=== PATIENT | female | born 1960 | race Caucasian/White ===

== ENCOUNTER 2021-09-15 22:43 | Inpatient (IN) | payer BC, SELFPAY ==
[2021-09-15 23:40] VITALS: BP 104/62; PULSE 99; RESP 18; TEMP 36.6; O2SAT 97
--- NOTE | 2021-09-16 00:47 | PC.ADMIT ---
Patient admitted to [facility] from [facility] medical unit, after receiving medical clearance from ingesting Prescription Effexor 10-11 pills with alcohol after a bad day caring for my mom . Signed CV, and requested and signed a 3Day Notice upon admission to the unit. Patient calm and cooperative with admission assessment; visibly nervous. Patient reports increased recent stressors of caring for her mother who is on hospice and dying, along with poor coping skills, drinking to cope with things . No s/sx of alcohol withdrawal, last drink was 09/12.Reports not feeling suicidal, does not consider OD to be a suicide attempt, I care too much about my family...I did it just to get some sleep. Reporting poor sleep, only 4-5 hours of broken sleep a night. Decreased appetite. 2nd overdose in recent months, I have never felt this way before and I wonder if it is the medicine. Patient reports having strong support system with her family, but lacks outside supports, has been trying to get an outside therapist for over 6 months; recently connected with a [employer] [employer] who is prescribing psych medications. Legals Signed. Reports feeling safe on the unit, denies SI/HI/AVH. Placed on 15 minute safety checks.
[2021-09-16 08:34] LABS: Cholesterol 266 mg/dL; HDL Cholesterol 54 mg/dL; LDL Cholesterol Calculated 183 mg/dl; Magnesium 2.3 mg/dL (1.6-2.6); Triglycerides 148 mg/dL
[2021-09-16 08:52] LABS: Estimated Average Glucose 97 mg/dL
[2021-09-16 08:56] LABS: Free T4 (Free Thyroxine) 1.09 ng/dL (0.71-1.85); Thyroid Stimulating Hormone 2.68 uIU/mL (0.32-4.0)
[2021-09-16 09:15] LABS: Folate 12.2 ng/mL (> or = 4.0); Vitamin B12 155 pg/mL (200-900)
--- NOTE | 2021-09-16 10:11 | P.CONHOSP_ITS ---
History of Present Illness Data of Consult Service Date: 09/16/21 Primary Care Provider: Unknown Physician HPI 60 year old female with HTN, HLD here with depression and ingestion meds with alcohol . She denies SI at present. No other acute medical complaint. no SO, no chest pain, no dizziness Review of Systems Review of Systems: Gen: no fever Resp: no sob, no cough CV: no chest, no MONROY, no leg edema GI: No n/v, no abd pain Neuro: No confusion PsychL no SI Yes all other systems are reviewed and are negative [facility] Social History Household Members: Spouse, Family, Children and Other Household Members Other:: Spouse, dtr& RODNEY with 3 grandchilden; Mother lives in in-law apartment Housing: House Do you presently have visiting nurse or other home services: No Patient Tobacco Use Status: Former Tobacco user Quit Date: 1981 Tobacco use type: Cigarette Smoked in Last 30 Days: No Use of substances other than those prescribed or required for medical reasons: No Have you been hit, kicked, punched, or otherwise hurt by someone within the past year? If so, by whom?: No Do you feel safe in your current relationship?: Yes Is there a partner from a previous relationship who is making you feel unsafe now?: No Are you made to feel afraid or neglected: No Advance Directives: No Do you have thoughts of harming others: None Do you have a plan to hurt others: No Plan Recently lost weight without trying: Unsure Eating poorly because of decreased appetite: Yes Nutrition Risks: No Nutritional Risk Patient : No : No Poor oral hygiene: No Meds Allergies Allergy/AdvReac Type Severity Reaction Status Date / Time No Known Allergies Allergy Verified 09/15/21 23:01 Active Medications: Current Medications Acetaminophen (Acetaminophen 325 Mg Tablet) 650 mg PO Q6H PRN PRN Reason: Headache/Pain Mild Scale (1-3) Al Hydroxide/Mg Hydroxide (Magnesium Hydrox/Alum Hydrox 30 Ml Oral.Susp) 30 ml PO Q6H PRN PRN Reason: Heartburn/Nausea Hydroxyzine HCl (Hydroxyzine Hcl 25 Mg Tablet) 25 mg PO Q6H PRN PRN Reason: Anxiety Magnesium Hydroxide (Milk Of Magnesia 30 Ml Oral.Susp) 30 ml PO DAILY PRN PRN Reason: Constipation Trazodone HCl (Trazodone Hcl 50 Mg Tablet) 50 mg PO BEDTIME PRN PRN Reason: Insomnia Home Medications Medication Instructions Recorded Confirmed Last Taken Type losartan 75 mg PO DAILY 09/16/21 09/16/21 09/15/21 20:00 History 75 mg Physical Exam Vital Signs and Narrative: Vital Signs: Last Vital Signs Temp 97.8 F 09/15/21 23:40 Pulse 99 09/15/21 23:40 Resp 18 09/15/21 23:40 BP 104/62 09/15/21 23:40 Pulse Ox 97 09/15/21 23:40 O2 Del Method 09/15/21 23:40 Const: Other: Constitutional: Alert, in no distress Mental Status: Oriented to person, place and time. Eyes: Pupils are equal, round and reactive to light. Ear, Nose and Throat: Oropharynx clear, mucous membranes moist. Respiratory: Clear to auscultation. No wheezing, rales or rhonchi. Cardiovascular: S1 S2 regular. No murmurs, rubs or gallops. Gastrointestinal: Abdomen soft, non-tender, non-distended. Normal bowel sounds.? Neurologic: Cranial nerves II-XII grossly intact. No focal neurological deficits. Moves all extremities spontaneously.? Skin: No rashes or lesions.? Musculoskeletal: No cyanosis or clubbing. Psychiatric: Normal mood and affect, denies SI/HI Results Labs Labs: Laboratory Results - last 24 hr 09/16/21 09/16/21 09/16/21 08:06 08:06 08:06 Estimat Average Glucose 97 Hemoglobin A1c % 5.0 Magnesium 2.3 Triglycerides 148 Cholesterol 266 LDL Cholesterol, Calc 183 HDL Cholesterol 54 Vitamin B12 155 L Folate 12.2 TSH 2.68 Free T4 1.09 Assessment and Plan (1) HTN (hypertension): Status: Acute Plan 60 year old female with HTN, HLD here with depression and ingestion meds with alcohol . She denies SI at present. No other acute medical complaint. no SO, no chest pain, no dizziness HTN--continue Losartn, HLD--may resume Rozuvostatin. Should ECT be indicated, get an ECG and if unremarkable. Proceed.
--- NOTE | 2021-09-16 16:27 | HO.PSYADMNOT ---
HPI Date of Service: 09/16/21 Chief Complaint: Unspecified depressice disorder Sources of Information: patient interviewed, chart reviewed and crisis/core team assessment reviewed HPI Subjective Notes: Gibson Warning, Conditional Voluntary and 3 Day Healthcare Proxy: No Guardianship: No Medical Problems Affecting Mental Status: No Narrative: 60 yo female, transfer from medical, s/p overdose of venlafaxine ER 10-11 tabs and alcohol in pt's report- not to but to get some sleep . This is pt's second Venlafaxine/Alcohol OD. She was recently in [facility] for the same issue. Pt reports I am obsessive about having my health-I did not believe I overdosed, I just took extra to sleep . I am anxious about my health-I would never think of doing this . I have a wonderful family-, children, grandchildren . I want to be with them. Pt reports current major stressor is her mom. Pt and mom have lived together their entire lives except for the first 5 years of pt's marriage. Mom is 89 and is in the process of passing. I see it every day-it is so hard- I held her like a child last week (crimodesto). Pt reports that she has 9 grandchildren and another due in a few months. She has signed a TDN and hopes to leave next week. Toxicology positive for Cannabis-reports she tried a gummy for sleep which was not effective. Past Psychiatric History: IP: [facility] recently s/p OD of Venlafaxine, Alcohol OP: [facility] for meds Pt on the wait list for therapy Has interest in PHP if available. Medical Evaluation Reviewed: Yes [facility] Narrative: HTN Serotonin Syndrome s/p OD with >QTc [id number] range and sinus tachycardia, along with motor restlessness HLD Family History: denies Social History: Born in [place], raised in [place]. 4 sisters, 1 of cystic fibrosis- three years after father ; 2 brothers Father when pt was 11. He was 44 and of cardiac arrest Pt comments this is part of the reason it is so hard to lose my mom. She is the only parent to me High school graduate. , works on a ship and is usually gone for several months. He is currently home until October. 4 kids, 1 son, 3 daughters Son just retired from the [employer], moved to [place]. Pt and just returned from visiting. They will relocate to [place] and pt plans to fly down for a few weekends to care for the grandchildren (4). Three other children with 5 grandchildren and one expected in a few months.(due Oct 2) Mom has lived with pt for pt's entire life except for 5 years when she was first Substance History: Alcohol- 3 times per week, possibly once on the weekend to cope and sleep Trauma History: losses Diagnostics Vital Signs (24Hr): Vital Signs - 24 hr 09/15/21 23:40 Temperature 97.8 F Pulse Rate 99 Respiratory Rate 18 Blood Pressure 104/62 Pulse Oximetry 97 Oxygen Delivery Method Room Air Labs Labs: Laboratory Results - last 48 hr 09/16/21 09/16/21 09/16/21 08:06 08:06 08:06 Estimat Average Glucose 97 Hemoglobin A1c % 5.0 Magnesium 2.3 Triglycerides 148 Cholesterol 266 LDL Cholesterol, Calc 183 HDL Cholesterol 54 Vitamin B12 155 L Folate 12.2 TSH 2.68 Free T4 1.09 Meds/Allergies Meds Home Medications Medication Instructions Recorded Confirmed Type losartan 75 mg PO DAILY 09/16/21 09/16/21 History Allergies Allergies Allergy/AdvReac Type Severity Reaction Status Date / Time No Known Allergies Allergy Verified 09/15/21 23:01 Mental Status Exam Mental Status Exam Patient Orientation: Person, Place, Time and Situation Level of Consciousness: Alert Patient Behavior: Talkative, Good Eye Contact and Crying Mood Description: Depressed, Anxious, Sad and Apprehensive Affect Description: Flat Patient Cognition Impaired: No Ability to Follow Directions: Good Speech Pattern: Spontaneous Speech Memory Description: Intact Hallucinations: None Delusions: Not Present Perceptual Disturbances: Derealization Thought Process: Rumination Thought Content: positive for Perseveration and positive for Suicidal Ideation (denies) Depressive Symptoms: Insomnia, Unhappiness (grief-mom is about to pass away) and Thoughts of /Suicide (denies) Abnormal Motor Activity Signs and Symptoms: Restlessness Judgement: Fair Assessment & Plan Assessment & Plan (1) Recurrent major depression: Status: Acute Code(s): F33.9 - Major depressive disorder, recurrent, unspecified (2) Alcohol abuse: Status: Acute Code(s): F10.10 - Alcohol abuse, uncomplicated (3) Anticipatory grief: Status: Acute Code(s): F43.20 - Adjustment disorder, unspecified Plan 60 yo female, s/p overdose of Venlafaxine 10-11 tabs and alcohol with resulting Serotonin Syndrome. Pt reports this was not an attempt to take her life but an attempt to get sleep and cope with the upcoming passing of her mother. This is pt's second admission for Venlafaxine/alcohol OD and she states there is something about this medicine that makes it strange for me to be clear . Pt denies SI, she has signed a three day notice of intent and is willing to do PHP,IOP, and individual therapy. She also is willing to trial another antidepressant. Plan: Trazodone for sleep. EKG on 09/19 to eval QTc and begin another agent. Will allow a break in agents to decrease Venlafaxine levels. Family meeting if possible. Patient educated on: therapeutic strategies Informed Consent: further education needed Reason for continued inpatient stay Substantial Risk for: harm to self, inability to function and rapid decompensation
[2021-09-16 21:08] VITALS: BP 164/75; PULSE 84; RESP 16; O2SAT 99
[2021-09-16] MEDS: hydrOXYzine HCL 25 MG TABLET PO (22:48)
[2021-09-16] MEDS: traZODone HCL 50 MG TABLET PO (22:48)
[2021-09-17 06:43] VITALS: BP 121/72; PULSE 85; RESP 14; TEMP 36.8; O2SAT 96
[2021-09-17] MEDS: Losartan Potassium 25 MG TABLET 75 MG PO (09:25)
[2021-09-17] MEDS: Acetaminophen 325 MG TABLET 650 MG PO ×2 (09:26→21:35)
--- NOTE | 2021-09-17 17:27 | HO.PSYCHPN ---
Subjective Subjective Date of Service: 09/17/21 Reason For Visit: Unspecified depressice disorder Interim History: Patient reports that her mood is better. She discussed the overdose and said she never wants to but just to sleep. She denies any SI at all. She is open to starting a new antidepressant. Patient talked tender early about her mother who was on hospice and will soon and how it has been difficult adjusting to this. She also talked about her problems with drinking alcohol and how she knows this played a big contribution. Her plan is to pursue sobriety. Patient also very much wants a therapist Mental Status Exam Mental Status Exam Narrative: Pt is alert and oriented; behavior is cooperative, friendly and calm; patient is not in distress; dressed in casual attire, well groomed; mood is described as better and affect congruent; eye contact appropriate; Speech is normal rate, volume and prosody and not pressured; no psychomotor agitation/retardation present; thought process is organized and goal directed; Thought content is on tx; otherwise pertinent to relevant topics and without any delusional content, paranoid ideations or grandiosity; denies any SI/HI. There is no evidence of perceptual disturbance. Patients insight and judgment appear intact. Diagnostics Vital Signs (24Hr): Vital Signs - 24 hr 09/16/21 21:08 09/17/21 06:43 Temperature 98.3 F Pulse Rate 84 85 Respiratory Rate 16 14 Blood Pressure 164/75 H 121/72 Pulse Oximetry 99 96 Oxygen Delivery Method Room Air Room Air Labs Labs: Laboratory Results - last 48 hr 09/16/21 09/16/21 09/16/21 08:06 08:06 08:06 Estimat Average Glucose 97 Hemoglobin A1c % 5.0 Magnesium 2.3 Triglycerides 148 Cholesterol 266 LDL Cholesterol, Calc 183 HDL Cholesterol 54 Vitamin B12 155 L Folate 12.2 TSH 2.68 Free T4 1.09 Medications Medications Current Medications Acetaminophen (Acetaminophen 325 Mg Tablet) 650 mg PO Q6H PRN PRN Reason: Headache/Pain Mild Scale (1-3) Last Admin: 09/17/21 09:26 Dose: 650 mg Al Hydroxide/Mg Hydroxide (Magnesium Hydrox/Alum Hydrox 30 Ml Oral.Susp) 30 ml PO Q6H PRN PRN Reason: Heartburn/Nausea Hydroxyzine HCl (Hydroxyzine Hcl 25 Mg Tablet) 25 mg PO Q6H PRN PRN Reason: Anxiety Last Admin: 09/16/21 22:48 Dose: 25 mg Losartan Potassium (Losartan Potassium 25 Mg Tablet) 75 mg PO DAILY JULIETTE Last Admin: 09/17/21 09:25 Dose: 75 mg Magnesium Hydroxide (Milk Of Magnesia 30 Ml Oral.Susp) 30 ml PO DAILY PRN PRN Reason: Constipation Trazodone HCl (Trazodone Hcl 50 Mg Tablet) 50 mg PO BEDTIME PRN PRN Reason: Insomnia Last Admin: 09/16/21 22:48 Dose: 50 mg Allergies Allergies Allergy/AdvReac Type Severity Reaction Status Date / Time No Known Allergies Allergy Verified 09/15/21 23:01 Assessment & Plan Assessment & Plan (1) Recurrent major depression: Status: Acute Code(s): F33.9 - Major depressive disorder, recurrent, unspecified (2) Alcohol abuse: Status: Acute Code(s): F10.10 - Alcohol abuse, uncomplicated (3) Anticipatory grief: Status: Acute Code(s): F43.20 - Adjustment disorder, unspecified Plan 60 yo female, s/p overdose of Venlafaxine 10-11 tabs and alcohol with resulting Serotonin Syndrome. Pt reports this was not an attempt to take her life but an attempt to get sleep and cope with the upcoming passing of her mother. This is pt's second admission for Venlafaxine/alcohol OD and she states there is something about this medicine that makes it strange for me to be clear . Pt denies SI, she has signed a three day notice of intent and is willing to do PHP,IOP, and individual therapy. She also is willing to trial another antidepressant. Plan: Trazodone for sleep. EKG on 09/19 to eval QTc and begin another agent. Will allow a break in agents to decrease Venlafaxine levels. Family meeting if possible. 09/17 no changes to current regimen. Patient wants to discuss another antidepressant trial; says her daughter was taking a medication that was helpful for her depression and wants to see if it is possible to be on the same thing I spent minutes with the patient and/or on the patient floor today, greater than?50% of which was spent counseling/coordinating care. Patient educated on: diagnosis, medication risk/benefits and substance abuse Informed Consent: understands Reason for contiued inpatient stay Substantial Risk for: stable for discharge
[2021-09-17 18:00] VITALS: BP 162/83; PULSE 82; RESP 16; TEMP 36.3; O2SAT 99
[2021-09-17] MEDS: traZODone HCL 50 MG TABLET PO (21:30)
[2021-09-17] MEDS: hydrOXYzine HCL 25 MG TABLET PO (21:30)
[2021-09-18 06:00] VITALS: BP 123/56; PULSE 92; RESP 15; TEMP 36.4; O2SAT 97
[2021-09-18] MEDS: Losartan Potassium 25 MG TABLET 75 MG PO (08:11)
[2021-09-18 08:13] VITALS: BP 122/58; PULSE 88; RESP 14
--- NOTE | 2021-09-18 15:10 | P.PNPSI_ITS ---
Subjective Subjective Date of Service: 09/18/21 Reason For Visit: Unspecified depressice disorder Interim History: Patient asked for discharge today after learning that her mother's condition has worsened and the end is near. Patient says she will feel devastated if she was not able to be with her mother when her mother dies. Patient's also present on the unit. Patient reports that she is safe and without any SI at all. She also discussed her plan for sobriety which includes AA meetings she will attend with her daughter; she was also interested in maintenance medication but since she wants to leave today says will pursue this with her outpatient provider. Patient also very much wants a therapist. Patient's agrees that she is stable and able to discharge home. Quality Control Systems Manager discussed case with Verena Becerra, patient's primary provider on the unit, who agrees that patient is safe patient to discharge home. Mental Status Exam Mental Status Exam Narrative: Pt is alert and oriented; behavior is cooperative, friendly and calm; patient is not in distress; dressed in casual attire, well groomed; mood is described as anxious and affect congruent; eye contact appropriate; Speech is normal rate, volume and prosody and not pressured; no psychomotor agitation/retardation present; thought process is organized and goal directed; Thought content is on tx; otherwise pertinent to relevant topics and without any delusional content, paranoid ideations or grandiosity; denies any SI/HI. There is no evidence of perceptual disturbance. Patients insight and judgment appear intact. Diagnostics Vital Signs (24Hr): Vital Signs - 24 hr 09/17/21 18:00 09/18/21 06:00 09/18/21 08:13 Temperature 97.4 F 97.6 F Pulse Rate 82 92 88 Respiratory Rate 16 15 14 Blood Pressure 162/83 H 123/56 L 122/58 L Pulse Oximetry 99 97 Oxygen Delivery Method Room Air Room Air Medications Medications Current Medications Acetaminophen (Acetaminophen 325 Mg Tablet) 650 mg PO Q6H PRN PRN Reason: Headache/Pain Mild Scale (1-3) Last Admin: 09/17/21 21:35 Dose: 650 mg Al Hydroxide/Mg Hydroxide (Magnesium Hydrox/Alum Hydrox 30 Ml Oral.Susp) 30 ml PO Q6H PRN PRN Reason: Heartburn/Nausea Hydroxyzine HCl (Hydroxyzine Hcl 25 Mg Tablet) 25 mg PO Q6H PRN PRN Reason: Anxiety Last Admin: 09/17/21 21:30 Dose: 25 mg Losartan Potassium (Losartan Potassium 25 Mg Tablet) 75 mg PO DAILY JULIETTE Last Admin: 09/18/21 08:11 Dose: 75 mg Magnesium Hydroxide (Milk Of Magnesia 30 Ml Oral.Susp) 30 ml PO DAILY PRN PRN Reason: Constipation Trazodone HCl (Trazodone Hcl 50 Mg Tablet) 50 mg PO BEDTIME PRN PRN Reason: Insomnia Last Admin: 09/17/21 21:30 Dose: 50 mg Allergies Allergies Allergy/AdvReac Type Severity Reaction Status Date / Time No Known Allergies Allergy Verified 09/15/21 23:01 Assessment & Plan Assessment & Plan (1) Recurrent major depression: Status: Acute Code(s): F33.9 - Major depressive disorder, recurrent, unspecified (2) Alcohol abuse: Status: Acute Code(s): F10.10 - Alcohol abuse, uncomplicated (3) Anticipatory grief: Status: Acute Code(s): F43.20 - Adjustment disorder, unspecified Plan 60 yo female, s/p overdose of Venlafaxine 10-11 tabs and alcohol with resulting Serotonin Syndrome. Pt reports this was not an attempt to take her life but an attempt to get sleep and cope with the upcoming passing of her mother. This is pt's second admission for Venlafaxine/alcohol OD and she states there is something about this medicine that makes it strange for me to be clear . Pt denies SI, she has signed a three day notice of intent and is willing to do PHP,IOP, and individual therapy. She also is willing to trial another antidepressant. Plan: Trazodone for sleep. EKG on 09/19 to eval QTc and begin another agent. Will allow a break in agents to decrease Venlafaxine levels. Family meeting if possible. 09/17 no changes to current regimen.? Patient wants to discuss another antidepressant trial; says her daughter was taking a medication that was helpful for her depression and wants to see if it is possible to be on the same thing 09/18 patient denies any SI at all; wants to discharge home to be with her mother who is near and on hospice. Patient's present and agrees that patient is safe for discharge. Quality Control Systems Manager also discussed case with patient's primary provider on the unit who agrees that patient is safe for discharge. Patient's request honored. I spent minutes with the patient and/or on the patient floor today, greater than?50% of which was spent counseling/coordinating care. Patient educated on: diagnosis, substance abuse and therapeutic strategies Informed Consent: understands Reason for contiued inpatient stay Substantial Risk for: stable for discharge
--- NOTE | 2021-10-22 17:53 | PM.PSYDC ---
DS: Providers Provider Date of Service: 09/18/21 Date of admission: 09/15/21 22:43 Date of discharge: 09/18/21 Primary care physician: Unknown Physician Admitting clinician: Verena Gleason Attending physician on admission: Raudel Bae Consults: 09/15/21 23:03 Consult to Hospitalist Routine Consulting Provider: Hospitalist Reason For Exam: new admit from [place] Attending physician on discharge: Nathan Maciel Discharging clinician: Nathan Maciel DS: Diagnosis Discharge Diagnosis (1) Recurrent major depression: Status: Acute (2) Alcohol abuse: Status: Resolved (3) Anticipatory grief: Status: Acute DS: Medications Discharge Medications Home Medications: Home Medications Medication Instructions Recorded Confirmed losartan 75 mg PO DAILY 09/16/21 09/16/21 Previous Rx's Medication Instructions Recorded hydroxyzine HCl 25 mg tablet 25 mg PO TID PRN Anxiety 30 days 09/18/21 #90 tabs trazodone 50 mg tablet 50 mg PO BEDTIME PRN Insomnia 30 09/18/21 days #30 tabs Mental Status Exam Mental Status Exam Narrative: Pt is alert and oriented; behavior is cooperative, friendly and calm; patient is not in distress; dressed in casual attire, well groomed; mood is described as anxious and affect congruent; eye contact appropriate; Speech is normal rate, volume and prosody and not pressured; no psychomotor agitation/retardation present; thought process is organized and goal directed; Thought content is on tx; otherwise pertinent to relevant topics and without any delusional content, paranoid ideations or grandiosity; denies any SI/HI. There is no evidence of perceptual disturbance. Patients insight and judgment appear intact. DS: Summary Hospital Course Hospital Course: 61 yo mwf admitted s/p OD of alcohol, venlafaxine in an attempt to sleep. Toxicology positive for cannabis as well (pt tried a gummy to help with her sleep also). Pt did this previously with similiar intent and was admitted to [facility]. Pt reported anxiety about her health and not being able to sleep. She identified her major stress as her 89 yo mothers end of life journey. Both pt and mother have lived together all of pt's life except for her first 5 years of marriage. Pt reports a supportive marriage, strong connections with children and grandchildren (one expected in the next several weeks), however, the process of losing her mother has been overwhelming and she believes this is causing her to lose sleep. Pt filed a three day notice. Labs reviewed. She is aware of low B12 and will supplement upon discharge with her own brand of vitamins given by her OP team. Over the weekend her mother took a significant turn and was about to pass. Pt asked for discharge to be with her mom during this time and discharge was ordered by this financial underwriter. Pt will follow up with her out patient team and can call/ return as needed. She was given prescriptions for Trazodone and Hydroxzyine for sleep/anxiety. A new antidepressant was not initiated as she continues to stabilize from excess Venlafaxine. 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 Referrals: [facility] [Other] - 1 Week Physician,Unknown J [Primary Care Provider] - 1 Week Discharge Medications: New hydroxyzine HCl 25 mg Tablet 25 mg PO TID PRN (Reason: Anxiety) 30 Days Qty: 90 0RF trazodone 50 mg Tablet 50 mg PO BEDTIME PRN (Reason: Insomnia) 30 Days Qty: 30 0RF Continued losartan 75 mg PO DAILY Discharge Orders: Discharge Order (Routine); Ordered 09/18/21 Ordered By: Nathan Maciel Diet: Advance to usual diet Activity on Discharge: As tolerated Stand Alone Forms: Patient Portal Discharge page, Community Support Care Plan Goals: Maintain mood and safe behaviors Take medications as prescribed Continue to pursue sobriety Practice coping skills Continue with outpatient providers and reach out to them as needed Health Concerns: Mood stability and behaviors Sobriety Plan of Treatment: Follow up with your PCP, psychiatric provider and other outpatient providers regarding above concerns Take medications as prescribed Assessment: Risk assessment at time of discharge:? Patient was interviewed prior to discharge and found to be fully oriented and without any SI or HI. Patient has insight and demonstrates good judgment in terms of wanting to pursue treatment. Patient is not in imminent risk of harm to self or others and has a safety plan that includes presenting to the closest ER or calling 911 if feeling unsafe.? Patient has been observed closely by nursing and unit staff throughout admission; patient has not engaged in any behaviors that suggest dangerousness to self or others and has demonstrated appropriate behaviors and impulse control Discharge Date/Time: 09/18/21 15:39
== END 2021-09-18 15:39 | disposition home or self-care (01) | DRG 751 ==
PROVIDERS: Registered Nurse; Admitting Provider Psychiatry & Neurology Psychiatry; Visit Provider Clinical Nurse Specialist Psychiatric/Mental Health, Adult
DX: F33.9 Major depressive disorder, recurrent, unspecified (principal); I10 Essential (primary) hypertension; E78.5 Hyperlipidemia, unspecified; F43.20 Adjustment disorder, unspecified; F10.10 Alcohol abuse, uncomplicated; Z87.891 Personal history of nicotine dependence; Z79.899 Other long term (current) drug therapy
CPT/HCPCS: 36415; 80061; 82607; 82746; 83036; 83735; 84439; 84443